=== PATIENT | male | born 2000 | race Caucasian/White ===

== ENCOUNTER 2025-03-15 11:29 | Emergency (ER) | payer SELFPAY ==
[~2025-03-15] VITALS: Ht 172.7 cm; Wt 75.0 kg
[2025-03-15] MEDS: HYDROCODONE/ACETAMINOPHEN 5/325MG TABLET PO ONE (12:12)
[2025-03-15] MEDS ORDERED: PROPOFOL 200MG/20ML VIAL IV PRN (13:00)
[2025-03-15] MEDS ORDERED: ONDANSETRON HCL 4MG/2ML INJ IV ONE (13:00)
[2025-03-15 13:30] VITALS: O2SAT 100
[2025-03-15] MEDS: KETAMINE HCL 50 MG/ML 10ML IV ONE (13:34)
[2025-03-15 15:08] VITALS: BP 135/63; PULSE 80; RESP 15; TEMP 36.8; O2SAT 97
== END 2025-03-15 15:29 | disposition home or self-care (01) ==
LOC: ER 11:58
DX: S53.104A Unspecified dislocation of right ulnohumeral joint, initial encounter (principal); W22.8XXA Striking against or struck by other objects, initial encounter; Y93.89 Activity, other specified; Y92.480 Sidewalk as the place of occurrence of the external cause; Y99.8 Other external cause status
CPT/HCPCS: 73070; 24600; 99152; 99285; J3490; J2704; Z7610 ×5; A6449; 94070; A4565; A4606